=== PATIENT | female | born 1945 | race Caucasian/White ===

== ENCOUNTER → 2016-08-11 | Day surgery (SDC) | payer OTHER ==
[2016-08-01 09:29] VITALS: Ht 165.1 cm; Wt 93.2 kg
--- NOTE | 2016-08-07 12:30 | HISTORY & PHYSICAL EXAMINATION ---
DATE OF ADMISSION: 08/11/2016 ADMITTING DIAGNOSES: 1. Postmenopausal bleeding. 2. Probable endometrial polyp. ADMISSION HISTORY: The patient is a 71-year-old G3, P3 postmenopausal female who is admitted for D\T\C hysteroscopy for postmenopausal bleeding with probable endometrial polyp. The patient was initially referred to me by her primary care provider in May of last year for evaluation of this problem. She had an episode of bleeding in May and June. She had a pelvic ultrasound performed at an outside institution. The endometrial lining was thin, but there was some increased vascularity at the fundus of the uterus and sampling was recommended. The patient underwent an endometrial biopsy which showed fragments of benign endometrium with possible polyp. Treatment options were discussed with the patient and she initially chose conservative management. The patient had no bleeding for several months but then began bleeding again. Pelvic ultrasound done here in the office shows a 2 x 3 cm anterior wall polyp. Treatment options were discussed and the patient has been admitted for the above listed procedure. The patient has a history of a DVT with pulmonary embolus. She has been chronically anticoagulated for several years. The patient was seen for preoperative clearance by her primary care provider and adjustments to her medication was made by the coagulation clinic. The patient has been off anticoagulation medication for the last 5 days. PAST MEDICAL HISTORY: OB: x3. MARKETING EDITOR: ITZEL 3 with a LEEP excision of transformation zone and cold knife cone biopsy. Remainder as above. MEDICAL: Hypertension, hyperkalemia. Remainder as above. SURGICAL: Ankle surgery, knee surgery. ALLERGIES: No known drug allergies. SOCIAL HISTORY: No smoking. FAMILY HISTORY: Noncontributory. REVIEW OF SYSTEMS: As per HPI. ADMISSION PHYSICAL EXAMINATION: GENERAL: Shows a pleasant female in no acute distress. VITAL SIGNS: Blood pressure 130/80, height of 5 feet 5 inches, weight 203 pounds. HEAD, EYES, EARS, NOSE, AND THROAT EXAMINATION: Unremarkable. NECK: Supple. LUNGS: Clear. HEART: With a regular rhythm and rate. ABDOMEN: Obese, nontender with no palpable masses. PELVIC EXAMINATION: Shows atrophic external genitalia. The vaginal vault is pale with decreased rugation. The cervix is multiparous. Bimanual examination, uterus cannot be palpated secondary to patient habitus. Adnexa cannot be palpated secondary to patient habitus. RECTAL EXAMINATION: Confirmatory. EXTREMITY EXAMINATION: Shows no deep calf tenderness. NEUROLOGIC EXAMINATION: Grossly intact. IMPRESSION: A 71-year-old G3, P3 postmenopausal female, postmenopausal bleeding with probable endometrial polyp. PLAN: Risks, benefits and alternatives to the surgery have been discussed. While the benefits will be inspection of the endometrial lining and removal of any tissue, the risks are bleeding, infection, inadvertent perforation of the uterus and failure to diagnose and/or treat the problem. The patient understands this. Permit has been signed and she wishes to proceed.
[~2016-08-11] VITALS: Ht 165.1 cm; Wt 93.2 kg
[~2016-08-11] MED LIST: ASCORBIC ACID PO; ASPCH81X PO; ATROPINE SULFATE 0.1 MG/ML 5ML SYR IV PRN; BIOTIN PO; CYAN10005 PO; DEXAMETHASONE SOD INJ 4 MG/ML VIAL IV PRN; DEXAMETHASONE SOD INJ 4 MG/ML VIAL ONE; EpHEDrine SULFATE 50MG/5ML SYR ONE; EpHEDrine SULFATE INJ 50 MG/ML AMP IV PRN; FENTANYL CITRATE INJ 50 MCG/1 ML 2 ML VIAL IV PRN; FENTANYL CITRATE INJ 50 MCG/1 ML 2 ML VIAL ONE; FOLI1TAB7 PO; IBUPROFEN 600 MG TAB PO PRN; KERATIN PO; KETOROLAC TROMETHAMINE 30 MG/ML VIAL IV. PRN; LABETALOL HCL IV 5 MG/ML 20ML IV PRN; LACTATED RINGER'S 1000ML 1,000 ML IV SCH; LIDOCAINE HCL 2% 2 ML VIAL (20MG/ML) ONE; LOSA50TA6 PO; METOCLOPRAMIDE HCL INJ 5 MG/ML 2 ML VIAL IV PRN; MoRPHine SULFATE 10 MG/ML CARP/VIAL IV PRN; ONDANSETRON INJ 2 MG/ML 2 ML VIAL IV PRN; ONDANSETRON INJ 2 MG/ML 2 ML VIAL ONE; PHENYLEPHRINE 100MCG/ML 5ML SYR IV PRN; PROPOFOL IV EMULSION 10 MG/ML 20 ML VIAL IV ONE; SODIUM CHLORIDE 0.9% 1000ML 1,000 ML IV SCH; WARF1TAB6 PO; WARF2TAB8 PO; ZINC PO
--- NOTE | 2016-08-11 07:59 | History & Physical Bridge - SC ---
H&P Re-Evaluation Bridge Note: I have examined the patient, reviewed the History & Physical and in the interval since the performance of the History & Physical I have noted the following changes of clinical significance: No changes noted
--- NOTE | 2016-08-11 08:44 | [facility] Post Operative Brief Note ---
Immediate Operative Summary Operative Date Aug 11, 2016. Pre-Operative Diagnosis 1) Postmenopausal Bleeding, 2) Probable Polyp Post-Operative Diagnosis Same Procedure(s) Performed Hysteroscopy Dilatation And Curettag, Myosure Polypectomy Surgeon Dr. Alejo Senior Firmware Engineer Surgeon(s) None Estimated Blood Loss Minimal Findings Multiple endometrial polyps filling the endometrial cavity, Myosure resection of polyp, fluid deficit 500 cc Fluids (cc crystalloids) 800 Specimens A. Endometrial Curettings Drains None Anesthesia General Complication(s) None Disposition Recovery Room / PACU
--- NOTE | 2016-08-11 08:45 | Medical Student: [facility] ---
Immediate Operative Summary Operative Date Aug 11, 2016. Pre-Operative Diagnosis Postmenopausal bleeding, probable polyp Post-Operative Diagnosis Postmenopausal bleeding, probably polyp Procedure(s) Performed Hysteroscopy, Dilation and Curettage, Myosure polypectomy Surgeon Dr. Alejo Drafter Landscape Surgeon(s) None Estimated Blood Loss <5 mL Findings Large polyp seen within uterus. Upon removal bilateral ostia visualized. Anatomy otherwise wnl. Specimens Endometrial curettings Drains None Anesthesia General Complication(s) None Disposition Recovery Room / PACU
--- NOTE | 2016-08-11 08:48 | Discharge Instructions-SurgCtr ---
Discharge Instructions Visit Reason for Visit: Postmenopausal Bleeding, Endometrial Polyp Discharge Discharge Diagnosis / Problem: same Discharge Goals Goal(s): Therapeutic intervention Medications Stopped Medications Name(s): ASA and Warfarin Restart Stopped Medication(s): Restart anticoagulation medications per [facility] coagulation clinic instructions Activity Recommendations Activity Limitations: as noted below Anesthesia . Post Anesthesia Instructions: If you have had General Anesthesia or IV Sedation: * Do not drive today. * Resume driving when surgeon permits. * Do not make important decisions or sign legal documents today. * Call surgeon for: 1. Temperature elevations greater than 101 degrees F. 2. Uncontrollable pain. 3. Excessive bleeding. 4. Persistent nausea and vomiting. 5. Medication intolerance (nausea, vomiting or rash). * For nausea and vomiting use only clear liquids such as: tea, soda, bouillon until nausea subsides, then gradually increase diet as tolerated. * If you have any concerns or questions, call your surgeon's office. If physician is unavailable and it is an emergency, call 911 or go to the nearest emergency room. . Instructions / Follow-Up Instructions / Follow-Up ACTIVITY RECOMMENDATIONS: * Avoid tampons, douching, hot tubs, pools, and intercourse until bleeding has stopped. * May shower as usual. * No strenuous activity for 24-48 hours. After 24-48 hours, you may do anything you feel like doing (driving and sports are okay). SPECIAL CARE INSTRUCTIONS: Special Diet: * Mild nausea may occur in the immediate post-operative period. * Take clear liquids such as tea, cola or bouillon until all nausea has subsided; you may then resume your normal diet. Special Care: * Light bleeding and vaginal spotting can last from a few days to 3-4 weeks. Call your doctor if bleeding becomes heavier than the heaviest part of your period. * Check your temperature twice a day for one week. If it goes above 100.4 degrees Fahrenheit (38.0 Celsius), notify your doctor. * Call your doctor's office for an appointment for 6 weeks after your surgery. FOLLOW-UP VISIT: Call your doctor's office for an appointment for 6 weeks after your surgery. Diet Recommendations Home Diet: resume previous diet Procedures Procedures Performed: Hysteroscopy Dilatation And Curettag, Myosure Polypectomy Pending Studies Studies pending at discharge: yes List of pending studies: Pathology report Medical Emergencies . Who to Call and When: Medical Emergencies: If at any time you feel your situation is an emergency, please call 911 immediately. . Non-Emergent Contact Non-Emergency issues call your: Spinner [employer] Call Non-Emergent contact if: you have a fever, temperature is above 100.5, your pain is not controlled . . "Provider Documentation" section prepared by Solitario Alejo.
--- NOTE | 2016-08-11 08:48 | Medical Student: [facility] ---
Immediate Operative Summary Operative Date Aug 11, 2016. Pre-Operative Diagnosis Post Menopausal bleeding, possible endometrial polyps Post-Operative Diagnosis Post-menopausal bleeding, endometrial polyps Procedure(s) Performed D&C with hysteroscopy, using MyoSure device. Surgeon Dr. Alejo Steam Table Attendant Surgeon(s) None Estimated Blood Loss Minimal, <5mL Findings Multiple polyps found, occupying majority of endometrial cavity. Vaginal atrophy consistent with age and post-menopausal status. Cervix appearance was consistent with prior excisional procedure. The rest of the observed anatomy was unremarkable. Specimens Polyp tissue obtained for pathology Anesthesia General Complication(s) None Disposition Recovery Room / PACU
--- NOTE | 2016-08-11 08:50 | [facility] Post Operative Brief Note ---
Immediate Operative Summary Operative Date Aug 11, 2016. Pre-Operative Diagnosis 1) Postmenopausal Bleeding, 2) Probable Polyp Post-Operative Diagnosis Same Procedure(s) Performed Hysteroscopy Dilatation And Curettag, Myosure Polypectomy Surgeon Dr. Alejo Transmission Calibration Engineer Surgeon(s) None Estimated Blood Loss Minimal Findings several endometrial polyps s/p Myosure resection. Fluids (cc crystalloids) 800 Specimens A. Endometrial Curettings Anesthesia General Complication(s) None Disposition Recovery Room / PACU
--- NOTE | 2016-08-11 08:58 | OPERATIVE REPORT ---
DATE OF OPERATION: 08/11/2016 PREOPERATIVE DIAGNOSES: 1. Postmenopausal bleeding. 2. Probable endometrial polyp. POSTOPERATIVE DIAGNOSIS: Same. PROCEDURE PERFORMED: 1. Diagnostic hysteroscopy. 2. D\T\C. 3. MyoSure polypectomy. SURGEON: Dr. Alejo. ANESTHESIA: General. FINDINGS: Hysteroscopic examination of the endometrial cavity showed multiple polyps filling the endometrial cavity. MyoSure resection of polyp performed, excising the polyps down to the base of the myometrium. Fluid deficit for the procedure 500 mL. PROCEDURE NOTE: The patient was taken to the operating room and after general anesthesia, was placed in the dorsolithotomy position and draped and prepped in usual fashion. Bladder was drained of any residual urine. Single tooth tenaculum was used to grasp the anterior lip of the cervix. Uterus sounded to 7 cm and the cervical os was dilated with Shearer dilators to a Shearer #23. The MyoSure hysteroscope was inserted into the endometrial cavity with description as above. The resecting instrument was inserted into the hysteroscope and under direct hysteroscopic guidance the polyps were excised to the base and sent for pathological evaluation. Denuded endometrium at this point with no active bleeding. Fluid deficit for the procedure 500 mL. The patient taken out of dorsal lithotomy and to recovery room in satisfactory condition. I attest to the content of the Intraoperative Record and any orders documented therein. Any exceptio ns are noted below.
[2016-08-11 09:29] VITALS: TEMP 36.4
--- NOTE | 2016-08-11 09:47 | Anesthesia Progress Nt - [facility] ---
Anesthesia Post Op Note Date & Time Aug 11, 2016 at 09:46 Vital Signs Pain Intensity: 0 Vital Signs Past 12 Hours Date Time Temp Pulse Resp B/P Pulse Ox O2 Delivery O2 Flow Rate FiO2 08/11/16 09:29 36.4 89 16 131/81 95 Room Air 08/11/16 09:15 85 15 96 08/11/16 09:15 84 15 08/11/16 09:14 88 15 127/85 97 08/11/16 09:14 88 15 08/11/16 09:13 127/85 08/11/16 09:12 36.2 86 16 129/83 97 Room Air 08/11/16 09:09 85 15 08/11/16 09:09 83 15 98 08/11/16 09:08 129/83 08/11/16 09:07 85 14 97 08/11/16 09:07 85 14 08/11/16 09:06 84 12 08/11/16 09:06 84 12 97 08/11/16 09:03 127/84 08/11/16 09:01 92 11 97 08/11/16 09:01 91 11 08/11/16 09:00 87 13 96 08/11/16 09:00 87 13 08/11/16 08:58 125/76 08/11/16 08:55 89 15 08/11/16 08:55 90 15 97 08/11/16 08:54 83 9 08/11/16 08:54 84 9 100 08/11/16 08:53 128/78 08/11/16 08:49 87 19 08/11/16 08:49 86 19 100 08/11/16 08:48 131/79 08/11/16 08:45 36.4 88 18 127/76 96 Mask 10 08/11/16 08:44 83 13 08/11/16 08:44 82 13 99 08/11/16 06:40 36.4 97 16 131/92 96 Room Air Notes Mental Status: alert / awake / arousable, participated in evaluation Pt Amnestic to Procedure: Yes Nausea / Vomiting: adequately controlled Pain: adequately controlled Airway Patency, RR, SpO2: stable & adequate BP & HR: stable & adequate Hydration State: stable & adequate Anesthetic Complications: no major complications apparent
[2016-08-11 09:52] VITALS: BP 136/85; PULSE 90; O2SAT 94
== END | disposition home or self-care (01) ==
LOC: X.SURG 06:33
PROVIDERS: ATTEND Obstetrics & Gynecology
DX: N95.0 Postmenopausal bleeding (principal); N84.0 Polyp of corpus uteri; Z86.711 Personal history of pulmonary embolism; Z79.01 Long term (current) use of anticoagulants; I10 Essential (primary) hypertension; E87.5 Hyperkalemia

== ENCOUNTER → 2017-01-23 | Outpatient (CLI) | payer OTHER ==
[~2017-01-23] MED LIST changes: -ATROPINE SULFATE 0.1 MG/ML 5ML SYR IV PRN; -DEXAMETHASONE SOD INJ 4 MG/ML VIAL IV PRN; -DEXAMETHASONE SOD INJ 4 MG/ML VIAL ONE; -EpHEDrine SULFATE 50MG/5ML SYR ONE; -EpHEDrine SULFATE INJ 50 MG/ML AMP IV PRN; -FENTANYL CITRATE INJ 50 MCG/1 ML 2 ML VIAL IV PRN; -FENTANYL CITRATE INJ 50 MCG/1 ML 2 ML VIAL ONE; -IBUPROFEN 600 MG TAB PO PRN; -KETOROLAC TROMETHAMINE 30 MG/ML VIAL IV. PRN; -LABETALOL HCL IV 5 MG/ML 20ML IV PRN; -LACTATED RINGER'S 1000ML 1,000 ML IV SCH; -LIDOCAINE HCL 2% 2 ML VIAL (20MG/ML) ONE; -METOCLOPRAMIDE HCL INJ 5 MG/ML 2 ML VIAL IV PRN; -MoRPHine SULFATE 10 MG/ML CARP/VIAL IV PRN; -ONDANSETRON INJ 2 MG/ML 2 ML VIAL IV PRN; -ONDANSETRON INJ 2 MG/ML 2 ML VIAL ONE; -PHENYLEPHRINE 100MCG/ML 5ML SYR IV PRN; -PROPOFOL IV EMULSION 10 MG/ML 20 ML VIAL IV ONE; -SODIUM CHLORIDE 0.9% 1000ML 1,000 ML IV SCH
[2017-01-23 12:33] LABS: INR 1.7 (0.9-1.1); PROTHROMBIN TIME (PATIENT) 18.7 SECONDS (9.0-12.0)
== END | disposition home or self-care (01) ==
LOC: C.LABPBG 08:59
PROVIDERS: ATTEND Family Medicine
DX: Z11.59 Encounter for screening for other viral diseases (principal); D68.51 Activated protein C resistance

== ENCOUNTER → 2017-07-23 | Outpatient (CLI) | payer OTHER ==
[~2017-07-23] MED LIST changes: -FOLI1TAB7 PO; +FOLI1TAB8 PO; +MELO7.5T5 PO
--- NOTE | 2017-07-23 11:53 | DIAGNOSTIC IMAGING REPORT ---
R HIP UNILATERAL 2 VIEWS HISTORY: 72 years-old Female RT HIP PAIN COMPARISON: CT abdomen and pelvis 07/05/2011 TECHNIQUE: 2 views of the right hip FINDINGS: Moderate to severe joint space narrowing with subchondral sclerosis and marginal spurring involves the right femoral acetabular joint. The bones appear mildly demineralized. There is no acute fracture or dislocation. The imaged right hemipelvis appears intact. Soft tissues are unremarkable. IMPRESSION: 1. No acute fracture or dislocation. 2. Moderate to severe right hip osteoarthritis. The above report was generated using voice recognition software. It may contain grammatical, syntax or spelling errors. Electronically signed by: Eran Trammell M.D. 07/23/2017 11:52 AM Dictated Date/Time: 07/23/2017 11:50 AM
[2017-07-23 16:17] LABS: ALT/SGPT 25 U/L (12-78); BLOOD UREA NITROGEN 16 mg/dl (7-18); CALCIUM 9.1 mg/dl (8.5-10.1); CARBON DIOXIDE 26 mmol/L (21-32); CHOLESTEROL 173 mg/dl (0-200); CREATININE 0.84 mg/dl (0.60-1.20); GLUCOSE 111 mg/dl (70-99); POTASSIUM 4.4 mmol/L (3.5-5.1); SODIUM 135 mmol/L (136-145)
[2017-07-23 16:24] LABS: LDL CHOLESTEROL CALCULATED 92 mg/dl
== END | disposition home or self-care (01) ==
LOC: C.RAD 10:04
PROVIDERS: ATTEND Family Medicine
DX: M16.11 Unilateral primary osteoarthritis, right hip (principal); H61.20 Impacted cerumen, unspecified ear; I10 Essential (primary) hypertension; R73.9 Hyperglycemia, unspecified

== ENCOUNTER 2019-12-13 07:59 | Inpatient (IN) ==
--- NOTE | 2019-11-30 11:41 | PAT Medication Instructions ---
Medication Instructions Date of Service November 30, 2019 Home Medications Medication Instructions Recorded folic acid 1 mg tablet 1 mg PO DAILY #90 tab 05/02/19 cyanocobalamin (vitamin B-12) 1,000 mcg capsule 1,000 mcg PO DAILY folic acid 1 mg tablet 1 mg PO DAILY aspirin 81 mg tablet,delayed release 81 mg PO DAILY warfarin 2 mg tablet See Rx Instructions .ROUTE .COMPLEX losartan 100 mg PO QAM metoprolol succinate 25 mg PO QAM ASK your prescriber and surgeon warfarin 2 mg tablet See Rx Instructions .ROUTE .COMPLEX DO NOT take the morning of surgery cyanocobalamin (vitamin B-12) 1,000 mcg capsule 1,000 mcg PO DAILY folic acid 1 mg tablet 1 mg PO DAILY losartan 100 mg PO QAM Take morning of surgery With a small sip of water, OTHERWISE NOTHING TO EAT OR DRINK AFTER MIDNIGHT: aspirin 81 mg tablet,delayed release 81 mg PO DAILY metoprolol succinate 25 mg PO QAM Other Notes If you have any questions please call us at [phone] or [phone] or [phone] or [phone]
--- NOTE | 2019-11-30 12:38 | Anesthesiology Consultation ---
Date of Service November 30, 2019 Assessment & Plan (1) Encounter for pre-operative examination: COVID Status: As of 11/29, patient denies travel (other than residing in [facility]) known exposure/contacts, symptoms or testing for coronavirus. PCP Clearance 12/01/19: "Patients history was reviewed. The patient was examined. The preoperative labs were reviewed. The patients EKG was also reviewed. The patient was found to be at acceptable cardiopulmonary risk for the planned procedure and is okay to proceed as scheduled with anticoagulation recommendations as per the coag clinic." Chart Review Chart Review: Acceptable Risk for Surgery and Patient seen in Pre Admission Testing Teaching & Discussion Instructed NPO after midnight before surgery, except medications with 15 cc of water. Medication instructions provided according to the PAT guidelines. History Surgery Operation Date: 12/13/19 09:45 Proposed Procedures p Right Total Hip Arthroplasty - Que Reinoso DO Height/Weight Height: 5 ft 5 in Weight: 92.9 kg Allergies Allergy/AdvReac Type Severity Reaction Status Date / Time No Known Allergies Allergy Verified 12/01/19 14:59 Medications Home Medications Medication Instructions Recorded Confirmed Last Taken cyanocobalamin (vitamin B-12) 1,000 mcg PO DAILY 04/22/18 12/01/19 Unknown 1,000 mcg capsule folic acid 1 mg tablet 1 mg PO DAILY #90 tab 05/02/19 12/01/19 Unknown aspirin 81 mg tablet,delayed 81 mg PO DAILY #90 tab 06/29/19 12/01/19 Unknown release warfarin 2 mg tablet See Rx Instructions .ROUTE 09/07/19 12/01/19 Unknown .COMPLEX tab losartan 100 mg PO QAM 11/21/19 12/01/19 Unknown metoprolol succinate 25 mg PO QAM 11/21/19 12/01/19 Unknown enoxaparin 40 mg/0.4 mL 40 mg SQ QAM #10 syr 11/30/19 12/01/19 Unknown subcutaneous syringe Past Medical History Medical History Deep vein thrombosis 8 YEARS AGO Elevated homocysteine (Chronic) [place] filter in place 8 YEARS AGO Hearing loss (Chronic) Heterozygous factor V Leiden mutation (Chronic) Hyperglycemia (Chronic) Osteoarthritis Prediabetes A1C 6.3% on pre-op labs Stomach cancer ? *RADIATION TREATMENT FOR 20 DAYS/NO SURGERY Exercise / Class Metabolic Activity III < 4 Walking/Shop/Light housework (Mild ENGLAND, no chest pain, with ambulation over longer distances, 2/2 hip pain. Prior to severe hip pain no ENGLAND.) Past Family History Family History Sister Hypertension Cancer Brother Hypertension Father No problems noted. Mother No problems noted. Denies family history of Ovarian cancer Prostate cancer Myocardial infarction Breast cancer Colorectal cancer Past Surgical History Surgical History History of ankle surgery LEFT (HARDWARE) History of colonoscopy History of colposcopy History of esophagogastroduodenoscopy (EGD) History of tooth extraction S/P knee surgery LEFT Past Anesthesia History No Hx of Anesthesia Complications and No Family Hx of Anesthesia Complications History of PONV No Hx of PONV and No Hx of Motion Sickness Social History Smoking Status: Never smoker Do You Dip or Chew Tobacco: No Hx Alcohol Use: No Hx Substance Use: No substance use type: does not use Review of Systems Pt denies any recent chest pain, shortness of breath, palpitations, cough, fever or URI. Physical Exam Vital Signs BP: 98/67 (pt reports this is low for her but denies lightheadedness or dizziness) P: 99bpm SPO2: 94% RA T: 98.2 F R: 16 ENMT Mouth: + dentures (upper only); no chipped teeth and no loose teeth Thyromental Distance: < 3.5 Finger Breadths (3) Mallampati Class: I Neck + thick neck; neck extension not limited Respiratory normal respiratory effort Auscultation: lungs clear to auscultation bilaterally Cardiovascular Rate/Rhythm: regular rhythm and + tachycardic (borderline) Heart Sounds: no murmur Extremities: no edema Testing Laboratory Results 11/30/19 12:50 11/30/19 12:50 PT 21.7 Seconds (9.0-12.0) H 11/30/19 12:50 INR 2.1 (0.9-1.1) H 11/30/19 12:50 APTT 35.5 Seconds (21.0-31.0) H 11/30/19 12:50 Hemoglobin A1c 6.3 % (4.5-5.6) H 11/30/19 12:50 Urine Color Dark Yellow 05/13/20 12:50 Urine Appearance Turbid (Clear) A 11/30/19 12:50 Urine pH 5.0 (4.5-7.5) 11/30/19 12:50 Ur Specific [place] 1.027 (1.000-1.030) 11/30/19 12:50 Urine Protein Negative (Negative) 11/30/19 12:50 Urine Glucose (UA) Negative (Negative) 11/30/19 12:50 Urine Ketones Trace (Negative) H 11/30/19 12:50 Urine Nitrite Negative (Negative) 11/30/19 12:50 Ur Leukocyte Esterase Negative (Negative) 11/30/19 12:50 Urine WBC (Auto) 1-5 /hpf (0-5) 11/30/19 12:50 Urine RBC (Auto) 0-4 /hpf (0-4) 11/30/19 12:50 U Hyaline Cast (Auto) 5-10 /lpf (0-5) H 11/30/19 12:50 U Epithel Cells (Auto) >30 /lpf (0-5) H 11/30/19 12:50 Urine Bacteria (Auto) Negative (Negative) 11/30/19 12:50 Blood Type A Positive 11/30/19 12:50 Antibody Screen NEGATIVE 11/30/19 12:50 11/30/19 12:50 Urine Culture - Final Urine,Clean Catch Three types of organisms present, all high counts probable skin sandrine. No further identifications or sensitivities to follow. Electrocardiogram Date: 11/30/19 Findings: + NSR @ (86bpm) Chest X-Ray Date: 11/30/19 FINDINGS: Lung volumes are normal. Lungs are clear. There is no pneumothorax or pleural effusion. Mild cardiomegaly is unchanged. Mediastinal contours are normal. There is no evidence for pulmonary edema. Incidental note is made of an IVC filter. Leftward deviation of the trachea is unchanged and due to known thyroid goiter. IMPRESSION: No acute cardiopulmonary findings. No change in appearance of the chest.
[2019-11-30 14:07] LABS: Basophils # (auto) 0.04 K/uL (0-0.2); Basophils % (auto) 0.4 %; Eosinophils # (auto) 0.06 K/uL (0-0.5); Eosinophils % (auto) 0.6 %; Hematocrit (blood only) 42.7 % (37-47); Hemoglobin 14.3 g/dL (12.0-16.0); Immature Granulocytes # (auto) 0.04 K/uL (0.00-0.02); Immature Granulocytes % (auto) 0.4 %; Lymphocytes # (auto) 2.56 K/uL (1.2-3.4); Lymphocytes % (auto) 23.6 %; Mean Corpuscular Hemoglobin 31.4 pg (25-34); Mean Corpuscular Hgb Conc 33.5 g/dL (32-36); Mean Corpuscular Volume 93.6 fL (80-100); Mean Platelet Volume 9.9 fL (7.4-10.4); Monocytes # (auto) 0.98 K/uL (0.11-0.59); Neutrophils # (auto) 7.15 K/uL (1.4-6.5); Platelet Count 388 K/uL (130-400); RDW Coefficient of Variation 13.8 % (11.5-14.5); RDW Standard Deviation 47.1 fL (36.4-46.3); Red Blood Count 4.56 M/uL (4.2-5.4); White Blood Count 10.83 K/uL (4.8-10.8)
[2019-11-30 14:15] LABS: Appearance Urine Turbid (Clear); Bacteria Urine Automated Negative (Negative); Bilirubin Urine Negative (Negative); Blood Urine Negative (Negative); Color Urine Dark Yellow; Epithelial Cell Urine Auto >30 /lpf (0-5); Estimated Average Glucose 134 mg/dl; Glucose Urine UA Negative (Negative); Hemoglobin A1C 6.3 % (4.5-5.6); Ketones Urine Trace (Negative); Leukocyte Esterase Urine Negative (Negative); Nitrite Urine Negative (Negative); Protein Urine Negative (Negative); RBC Urine Automated 0-4 /hpf (0-4); Specific Gravity Urine 1.027 (1.000-1.030); Urobilinogen Urine Negative (Negative)
[2019-11-30 14:21] LABS: INR 2.1 (0.9-1.1); Partial Thromboplastin Ratio 1.3; Partial Thromboplastin Time 35.5 Seconds (21.0-31.0); Prothrombin Time 21.7 Seconds (9.0-12.0)
[2019-11-30 14:22] LABS: Albumin Level 3.7 gm/dl (3.4-5.0); BUN Creatinine Ratio 17.9 (10-20); Calcium 9.2 mg/dl (8.5-10.1); Creatinine Clr Calc Pharmacy 51.6 ml/min; Est GFR (African American) 57.5; Est GFR (Non-African American) 49.6; Potassium 4.5 mmol/L (3.5-5.1)
--- NOTE | 2019-11-30 16:05 | XRay Report ---
XR chest Pre-admission PA/Lat CLINICAL HISTORY: Preoperative evaluation. COMPARISON STUDY: Chest radiograph July 17, 2016. FINDINGS: Lung volumes are normal. Lungs are clear. There is no pneumothorax or pleural effusion. Mil d cardiomegaly is unchanged. Mediastinal contours are normal. There is no evidence for pulmonary denisse a. Incidental note is made of an IVC filter. Leftward deviation of the trachea is unchanged and due t o known thyroid goiter. IMPRESSION: No acute cardiopulmonary findings. No change in appearance of the chest. ACT 112: Negative or not required by law. Electronically signed by: Paulie Whitaker M.D. 11/30/2019 4:04 PM
--- NOTE | 2019-12-01 06:11 | Electrocardiogram Report ---
Test Reason : Blood Pressure : / mmHG Vent. Rate : 086 BPM Atrial Rate : 086 BPM P-R Int : 156 ms QRS Dur : 078 ms QT Int : 368 ms P-R-T Axes : 048 -10 042 degrees QTc Int : 440 ms Normal sinus rhythm Normal ECG No previous ECGs available Confirmed by Sherman Best ([id number]) on 12/01/2019 6:11:19 AM Referred By: Que Reinoso Confirmed By:Sherman Best
--- NOTE | 2019-12-11 18:09 | History & Physical Report ---
Date of Service December 13, 2019 Assessment & Plan (1) Osteoarthritis of right hip: I have indicated the patient for right total hip replacement. The risks, benefits and complications of surgery were explained to the patient which include but not limited to infection, acute blood loss, DVT/PE, injury to nerves, vessels, bone, soft tissue, arthrofibrosis, chronic pain, failure of the prosthesis, hip dislocation, leg length discrepancy, need for additional surgery, cardiac and pulmonary events and . The patient wished to proceed with surgery and informed consent was obtained at this time. We will plan for Lovenox bridge and restating patient's home blood thinner, Warfarin post-oper atively for DVT prophylaxis. Upon discharge the patient will be discharged home with home health services. Appropriate clearances by PCP, Rajendra were obtained. The patient was asymptomatic for UTI. History of Present Illness Chief Complaint: Right hip pain/djd Primary Care Provider: Torie Chamorro MD The patient is a 74 year old female who presents with complaints of severe right hip pain and DJD. The patient has failed outpatient conservative treatments to this point which included NSAIDS, IA corticosteroid injection, home exercise/walking program. The patient's pain and limited function have progressed to the point where they severely hinder their activities of daily living and they no longer tolerate exercise programs. They are requesting to proceed with total hip replacement surgery. Allergies Allergy/AdvReac Type Severity Reaction Status Date / Time No Known Allergies Allergy Verified 12/13/19 08:28 Home Medications Home Medications Medication Instructions Recorded Confirmed Type cyanocobalamin (vitamin B-12) 1,000 mcg PO DAILY 04/22/18 12/13/19 History 1,000 mcg capsule folic acid 1 mg tablet 1 mg PO DAILY #90 tab 05/02/19 12/13/19 Rx aspirin 81 mg tablet,delayed 81 mg PO DAILY #90 tab 06/29/19 12/13/19 History release warfarin 2 mg tablet See Rx Instructions .ROUTE 09/07/19 12/13/19 History .COMPLEX tab losartan 100 mg PO QAM 11/21/19 12/13/19 History metoprolol succinate 25 mg PO QAM 11/21/19 12/13/19 History enoxaparin 40 mg/0.4 mL 40 mg SQ QAM #10 syr 11/30/19 12/13/19 Rx subcutaneous syringe Past Med/Surg History Medical History Deep vein thrombosis 8 YEARS AGO Elevated homocysteine (Chronic) Irving filter in place 8 YEARS AGO Hearing loss (Chronic) Heterozygous factor V Leiden mutation (Chronic) Hyperglycemia (Chronic) Osteoarthritis Prediabetes A1C 6.3% on pre-op labs Stomach cancer ? *RADIATION TREATMENT FOR 20 DAYS/NO SURGERY Surgical History History of ankle surgery LEFT ([place]) History of colonoscopy History of colposcopy History of esophagogastroduodenoscopy (EGD) History of tooth extraction S/P knee surgery LEFT Family History Sister Hypertension Cancer Brother Hypertension Father No problems noted. Mother No problems noted. Denies family history of Ovarian cancer Prostate cancer Myocardial infarction Breast cancer Colorectal cancer Social History Preferred Language: Palestinian Communication Ability: Effective Resident Care Provider Required: No Beliefs That Will Affect Care: None marital status: Current Living Situation: Spouse current occupational status: retired Feels Safe at Home: Yes Safety Concerns: Feels Safe At This Time Smoking Status: Never smoker Do You Dip or Chew Tobacco: No ; Second Hand Exposure: Yes ( SMOKES) ; Tobacco Cessation Education Requested by Patient: No Hx Alcohol Use: No Hx Substance Use: No Childhood Exposure to Second-Hand Smoke: No Dental Care, Regularly: No Physical Activity Frequency: Does not Exercise Seatbelt Use: always Sunscreen Use: Yes Review of Systems Review of Systems: All systems reviewed & are unremarkable except as noted in HPI & below Constitutional: as per Subjective / HPI Physical Exam Physical Exam: RLE NVSI +EHL/FHL/TA/GS SILT grossly, +2 DP pulse, compartments soft NT, limited painful ROM of the hip, antalgic gait. Constitutional: WD/WN, vitals as above Eyes: PERRL, conjunctivae normal, anicteric sclerae ENMT: external ear and nose normal, oropharynx normal Neck: trachea midline, no thyromegaly Respiratory: normal respiratory effort, lungs clear to auscultation Cardiovascular: RRR, no murmur, no edema Gastrointestinal (Abdomen): normal bowel sounds, soft, nontender, no hepatosplenomegaly Musculoskeletal: no cyanosis or clubbing, extremities motor strength 5/5 Skin: no rashes, warm and dry Neurologic: patellar DTR's 2+ bilat, sensation intact Psychiatric: A+Ox3, euthymic affect Lymphatic: no cervical or axillary lymphadenopathy Results & Data Results & Data ([facility]) Diagnostic Findings Multiple views of the hip demonstrates severe DJD with complete loss of the joint space. +osteophytes, +sclerosis, +subchondral cysts.
[~2019-12-13 07:59] MED LIST changes: +ACETAMINOPHEN 500 MG TAB PO SCH; -ASCORBIC ACID PO; -ASPCH81X PO; -BIOTIN PO; +BUPIVACAINE 0.5 % 5 MG/1 ML PF 10ML VIAL ONE; +CEFAZOLIN 2000MG 2,000 MG/15 ML SYR IV SCH; -CYAN10005 PO; +CeleBREX 200 MG CAP PO SCH; +FAMOTIDINE 20 MG TAB PO SCH; -FOLI1TAB8 PO; +GABAPENTIN 300 MG CAP PO SCH; -KERATIN PO; -LOSA50TA6 PO; +LR 500ML BOLUS, THEN 15ML/HR IV SCH; -MELO7.5T5 PO; +METOCLOPRAMIDE HCL 10 MG TABLET PO SCH; -WARF1TAB6 PO; -WARF2TAB8 PO; -ZINC PO; +dexAMETHasone 4 MG TAB PO SCH
[2019-12-13] MEDS ORDERED: PHENYLEPHRINE HCL 10 MG/ML VIAL ONE (08:08)
[2019-12-13] MEDS ORDERED: LIDOCAINE HCL 2% 2 ML VIAL/AMP(20MG/ML) INFIL ONE (08:08)
[2019-12-13] MEDS ORDERED: ePHEDrine sulfate 50 MG/ML SYR ONE (08:08)
[2019-12-13] MEDS ORDERED: PROPOFOL IV EMULSION 10 MG/ML 20 ML VIAL IV ONE ×2 (08:08→08:35)
[2019-12-13] MEDS ORDERED: MIDAZOLAM HCL 1 MG/ML 2ML VIAL ONE (08:09)
[2019-12-13] MEDS ORDERED: fentaNYL citrate 100 MCG/2 ML VIAL ONE (08:09)
[2019-12-13] MEDS ORDERED: BACITRACIN INJ 50,000 UNIT VIAL ONE (09:29)
--- NOTE | 2019-12-13 09:30 | History & Physical Bridge Note ---
Date of Service December 13, 2019 History & Physical Bridge Note I have examined the patient, reviewed the History & Physical and in the interval since the performance of the History & Physical I have noted the following changes of clinical significance: no changes noted
[2019-12-13 09:31] LABS: INR 1.1 (0.9-1.1); Partial Thromboplastin Ratio 0.9
[2019-12-13] MEDS ORDERED: ROPIVACAINE 0.5% HCL/PF 150 MG, BUPIVACAINE 0.5% MPF 30 ML, EPINEPHrine 30MG/30ML (OR U... INSTIL SCH (10:30)
--- NOTE | 2019-12-13 11:51 | Post Operative Brief Note ---
Immediate Post Op Note v1 Date of Surgery December 13, 2019 Pre & Post Diagnosis Operation Date: 12/13/19 09:50 Pre-Op Diagnosis: Unilateral Primary Osteoarthritis, Right Hip Post-Op Diagnosis: Unilateral Primary Osteoarthritis, Right Hip I identified the patient and participated in the time-out.: Yes Procedure Operation Date: 12/13/19 09:50 Actual Procedures p Right Posterior Total Hip Arthroplasty(Right) - Que Reinoso DO Surgeon Que Reinoso DO Assistant Professor Sculpture Taiwo Guzmán Estimated Blood Loss 165 Findings Consistent with Post-Op Diagnosis Fluids 2400 cc LR Specimens femoral head Anesthesia Type Spinal MAC Complications none Disposition Disposition: Recovery Room Overlapping Procedure I was present for: the critical portions of procedure. I was immediately available: during the entire case. Back up surgeon: was not required during procedure.
--- NOTE | 2019-12-13 11:54 | Operative Report ---
Post Operative Report Pre & Post Diagnosis Operation Date: 12/13/19 09:50 Pre-Op Diagnosis: Unilateral Primary Osteoarthritis, Right Hip Post-Op Diagnosis: Unilateral Primary Osteoarthritis, Right Hip I identified the patient and participated in the time-out.: Yes Procedure Operation Date: 12/13/19 09:50 Actual Procedures p Right Posterior Total Hip Arthroplasty(Right) - Que Reinoso DO Surgeon Que Reinoso DO Interpreter And Translator Taiwo Guzmán Estimated Blood Loss 165 Findings Consistent with Post-Op Diagnosis Fluids 2400 cc LR Specimens femoral head Anesthesia Type Spinal MAC Complications none Disposition Disposition: Recovery Room Indications The patient is a 74-year-old female who presents with severe progressive right hip DJD who has failed outpatient conservative treatments. I indicated the patient for a total hip replacement and the risks and benefits were explained in detail which included but not limited to infection, bleeding, blood clot, damage to surrounding bone, nerves, vessels, soft tissue, hip dislocation, failure of the prosthesis, leg length discrepancy, need for additional surgery and . The patient agreed to proceed with replacement of the hip and informed consent was obtained. Appropriate clearances were obtained. Description of Procedure COMPONENTS USED: Moon [employer] hip system: Acetabulum size 54, femur size 11 standard offset, femoral head 36-3.5, liner 3654, acetabular screw 30 mm x 1. Following induction of adequate spinal anesthesia, the patient was transferred to the OR table and placed in lateral decubitus position with left hip down. The right hip was prepped and draped in the typical sterile fashion. A timeout was performed, patient identified and site lakisha confirmed. Appropriate antibiotics were given. A standard posterolateral/Moriah-Langenbeck incision was made. Subcutaneous tissue was sharply dissected. Electrocautery was utilized for hemostasis. The fascia was incised throughout the length of the wound and retracted with the Charnley retractor. The bursa was taken down and the short external rotators were identified. The piriformis was tagged with #1 Vicryl. The short external rotators and capsule were divided from the posterior aspect of the femur using electrocautery. The posterior capsule was tagged with #1 Vicryl. Both external rotators and posterior capsule were swept posterior and protected, along with protecting the sciatic nerve. The hip was dislocated by flexion and internally rotation in a controlled manner and exposure of the femoral neck was gained with an old-style Hohmann and a blunt cobra retractor. A femoral cutting guide was utilized for making the appropriate level femoral neck cut with reciprocating saw. The femoral head was removed, measured and reserved on the back table. Next, attention was turned to the acetabulum. A posterior and anterior offset retractor was placed to gain adequate exposure. Acetabular labrum as well as posterior capsule elements were removed using electrocautery and forceps. Fovea centralis was cleared of all soft tissue. Sequential reaming was performed starting at 44 mm and carried up to a 53 mm and decision was made to proceed with impaction of a 54 mm G7 osteo-ti cup. This was impacted and held using a single 30 mm bone screw. The trial acetabular liner was placed at this time. Next, attention was turned to the proximal femur where a Bovie and pickup was used to further clear short external rotators from their insertion on the femur. Box osteotome and canal finder was used to gain access to the femoral canal and the lateral reamer on power was used to further open the proximal lateral canal. Sequentially rasping was carried up to a 11 which gave good fit and fill of the proximal femur. A trial reduction was carried out with a standard offset femoral neck component a 36-3.5 mm femoral head. The trial reduction was stable in all degrees of rotation with no [id number] impingement. The hip was dislocated, trial components were removed and access to the acetabulum was re-established. The trial liner was removed and the cup was irrigated to ensure all debris was removed. The final acetabular liner was inserted and properly seated in the cup. Access to the femur was once more gained and the size 11 femoral stem with standard offset was impacted into position. The hip was once more assessed with the 36-3.5 mm femoral head. Stability was accessed and found to be excellent with equal leg lengths. The hip was dislocated for the last time and the final 36-3.5 ceramic femoral head was impacted in place and the hip was reduced. Range of motion was checked once again and found to be stable. A Betadine soak was performed. After 3 minutes, the hip was once more irrigated with copious sterile saline solution with bacitracin. The fatimah-incisional soft tissue was injected utilizing [place] [facility] ortho mix which includes a combination of Ropivicaine 0.5% 150mg, Bupivicaine 0.5%/Epinephrine 1:200,000 30ml, Toradol 30mg, Dexamethasone 4mg, Ketamine 10mg, Clonidine 100mcg and NSS 30ml Orthomix solution. The piriformis, external rotators and capsule were repaired to the greater trochanter through bone tunnels using #5 FiberWire. The fascia was closed using #1 Vicryl, subcutaneous tissue was closed using 2-0 Vicryl, and skin was closed with dio. Sterile dressings were applied which included Scarlett incisional VAC dressing. The patient tolerated the procedure well and was transported to PACU in stable condition. Due to the complex nature of the procedure, the entire surgery was performed with the operational assistance of Taiwo Guzmán PA-C. The assistant spa director, under direct supervision, was involved in the actual performance of all aspects of the surgical procedure including patient positioning, hemostasis, tissue retraction, instrument management and wound closure. I attest to the content of the Intraoperative Record and any orders documented therein. Any exceptions are noted below.
[2019-12-13] MEDS ORDERED: fentaNYL citrate 100 MCG/2 ML VIAL IV PRN (12:51)
[2019-12-13] MEDS ORDERED: ePHEDrine sulfate 50 MG/ML AMP IV PRN (12:51)
[2019-12-13] MEDS ORDERED: ATROPINE SULFATE 0.1 MG/ML 10ML SYR IV PRN (12:51)
[2019-12-13] MEDS ORDERED: ONDANSETRON INJ 2 MG/ML 2 ML VIAL IV PRN ×2 (12:51→13:47)
--- NOTE | 2019-12-13 12:54 | Anesthesiology Progress Note ---
Date of Service December 13, 2019 Anesthesia Post Procedure Vital Signs Vital Signs: Temp Pulse Pulse Resp BP BP Pulse Ox 12/13/19 12:45 84 16 107/71 99 12/13/19 12:35 82 16 117/72 96 12/13/19 12:25 85 18 114/73 94 12/13/19 12:16 96.8 F L 88 22 101/65 92 12/13/19 08:21 98.8 F 98 H 18 129/92 94 Pain Intensity Right Hip: Pain Intensity: 3 Transfer of Care Handoff Completed per policy Notes Mental Status: alert / awake / arousable and participated in evaluation Patient Amnestic to Procedure: Yes Nausea / Vomiting: adequately controlled Pain: adequately controlled Airway Patency, RR, SpO2: stable & adequate BP & HR: stable & adequate Hydration State: stable & adequate Neuraxial Anesthesia: was administered and sensory block is resolving Anesthetic Complications: no major complications apparent and Pt Satisfied with anesthetic care
--- NOTE | 2019-12-13 12:57 | XRay Report ---
XR hip 1V RT w pelvis CLINICAL HISTORY: Postoperative hip arthroplasty COMPARISON: 07/23/2017 DISCUSSION: There are postsurgical changes of a total right hip arthroplasty. The acetabular and femo ral components appear well seated. No fractures or dislocations are visualized. There are overlying s kin dio. There is gas present in the soft tissues consistent with recent surgery IMPRESSION: Postsurgical changes of a total right hip arthroplasty. ACT 112: Negative or not required by law. Electronically signed by: Chinedu Jules M.D. 12/13/2019 12:56 PM
[2019-12-13] MEDS: SODIUM CHLORIDE 0.9% 1000ML 1,000 ML IV SCH ×2 (13:40→23:17)
[2019-12-13] MEDS ORDERED: bisacodyL 10 MG SUPP PR PRN (13:47)
[2019-12-13] MEDS ORDERED: OXYCODONE HCL IR 5 MG TAB (IMMEDIATE RELEASE) PO PRN (13:47)
[2019-12-13] MEDS ORDERED: METOCLOPRAMIDE HCL INJ 5 MG/ML 2 ML VIAL IV PRN (13:47)
[2019-12-13] MEDS ORDERED: HYDROmorphone INJ 0.5 MG/0.5 ML SYR IV PRN (13:47)
[2019-12-13] MEDS ORDERED: NALOXONE HCL 0.4 MG/1 ML VIAL/CARP IV PRN (13:47)
[2019-12-13] MEDS ORDERED: MAGNESIUM HYDROXIDE SUSP 30 ML UDC PO PRN (13:47)
[2019-12-13] MEDS ORDERED: STANDARD WARFARIN NOMOGRAM SCH (14:00)
[2019-12-13] MEDS ORDERED: WARFARIN SOD 5 MG TAB PO SCH (16:00)
[2019-12-13] MEDS ORDERED: Nursing to Pharmacy Communication ONE (16:49)
[2019-12-13] MEDS: ACETAMINOPHEN 500 MG TAB PO SCH ×2 (17:16→21:14)
[2019-12-13] MEDS ORDERED: WARFARIN SOD 4 MG TAB PO ONE (17:30)
[2019-12-13] MEDS: CEFAZOLIN 2000MG 2,000 MG/15 ML SYR IV SCH (18:07)
--- NOTE | 2019-12-13 19:59 | Orthopedic Progress Note ---
Date of Service December 13, 2019 Assessment & Plan (1) Osteoarthritis of right hip: s/p right RAINER -Ancef x24 -DVT ppx: SCDs, TEDS, Lovenox-->Warfarin -WBAT RLE -PT/OT -PO XR demonstrates well aligned well fixed total hip prothesis without fracture/dislocation -am labs -DC planning Admission and Anticipated Discharge Date Admission Date: December 13, 2019 Subjective Post Operative Progress Note Patient seen sitting up in bed, comfortable, denies complaints, pain well controlled, no acute issues. Review of Systems 2 Review of Systems: All systems reviewed & are unremarkable except as noted in HPI & below Constitutional: as per Subjective / HPI Physical Exam Physical Exam: RLE NVSI +EHL/FHL/TA/GS SILT grossly, +2 DP pulse, compartments soft NT, dressing cdi. Constitutional: WD/WN, vitals as above Results & Data ([place]) Vital Signs (Past 12 Hours) Vital Signs Temp Pulse Pulse Resp BP BP Pulse Ox 12/13/19 19:02 36.7 C 104 H 18 110/74 95 12/13/19 16:49 36.7 C 98 H 18 109/68 95 12/13/19 15:35 36.6 C 98 H 16 128/80 95 12/13/19 14:46 60 18 121/80 98 12/13/19 13:40 36.5 C 60 15 119/77 98 12/13/19 13:15 82 17 115/70 96 12/13/19 13:05 83 19 106/84 96 12/13/19 12:55 36.3 C L 82 14 116/73 95 12/13/19 12:45 84 16 107/71 99 12/13/19 12:35 82 16 117/72 96 12/13/19 12:25 85 18 114/73 94 12/13/19 12:16 36.0 C L 88 22 101/65 92 12/13/19 08:21 37.1 C 98 H 18 129/92 94
[2019-12-13] MEDS ORDERED: SENNA 8.6 MG TAB PO SCH (21:00)
[2019-12-13] MEDS: DOCUSATE SODIUM 100 MG CAP PO SCH (21:14)
[2019-12-14] MEDS: CEFAZOLIN 2000MG 2,000 MG/15 ML SYR IV SCH (02:42)
[2019-12-14] MEDS: ACETAMINOPHEN 500 MG TAB PO SCH ×2 (05:37→13:35)
[2019-12-14 06:17] LABS: Hematocrit (blood only) 33.2 % (37-47); Hemoglobin 11.1 g/dL (12.0-16.0); Immature Granulocytes # (auto) 0.05 K/uL (0.00-0.02); Immature Granulocytes % (auto) 0.3 %; Lymphocytes # (auto) 2.16 K/uL (1.2-3.4); Lymphocytes % (auto) 13.6 %; Mean Corpuscular Hemoglobin 30.8 pg (25-34); Mean Corpuscular Hgb Conc 33.4 g/dL (32-36); Mean Corpuscular Volume 92.2 fL (80-100); Mean Platelet Volume 9.2 fL (7.4-10.4); Monocytes # (auto) 1.95 K/uL (0.11-0.59); Monocytes % (auto) 12.3 %; Neutrophils # (auto) 11.69 K/uL (1.4-6.5); Neutrophils % (auto) 73.8 %; Platelet Count 297 K/uL (130-400); RDW Coefficient of Variation 13.6 % (11.5-14.5); RDW Standard Deviation 46.2 fL (36.4-46.3); White Blood Count 15.85 K/uL (4.8-10.8)
[2019-12-14 06:27] LABS: INR 1.2 (0.9-1.1)
[2019-12-14 06:47] LABS: BUN Creatinine Ratio 19.2 (10-20); Calcium 8.6 mg/dl (8.5-10.1); Est GFR (African American) 72.1; Est GFR (Non-African American) 62.2; Potassium 4.4 mmol/L (3.5-5.1)
--- NOTE | 2019-12-14 07:51 | Orthopedic Progress Note ---
Date of Service December 14, 2019 Assessment & Plan (1) Osteoarthritis of right hip: s/p right RAINER POD#1 -Ancef x24 -DVT ppx: SCDs, TEDS, Lovenox-->Warfarin, patient followed by Coumadin clinic -WBAT RLE -PT/OT -PO XR demonstrates well aligned well fixed total hip prothesis without fracture/dislocation -am labs - hgb 11.1, INR 1.2 -DC planning -Home with home health Admission and Anticipated Discharge Date Admission Date: December 13, 2019 Subjective Post Operative Progress Note Patient seen sitting up in bed, comfortable, denies complaints, pain well controlled, no acute issues. Denies F/C/N/V/SOB/CP. Review of Systems Review of Systems: All systems reviewed & are unremarkable except as noted in HPI & below Constitutional: as per Subjective / HPI Physical Exam Physical Exam: RLE NVSI +EHL/FHL/TA/GS SILT grossly, +2 DP pulse, compartments soft NT, dressing cdi. Constitutional: WD/WN, vitals as above Eyes: PERRL, conjunctivae normal, anicteric sclerae ENMT: external ear and nose normal, oropharynx normal Neck: trachea midline, no thyromegaly Respiratory: normal respiratory effort, lungs clear to auscultation Cardiovascular: RRR, no murmur, no edema Gastrointestinal (Abdomen): normal bowel sounds, soft, nontender, no hepatosplenomegaly Musculoskeletal: no cyanosis or clubbing, extremities motor strength 5/5 Skin: no rashes, warm and dry Neurologic: patellar DTR's 2+ bilat, sensation intact Psychiatric: A+Ox3, euthymic affect Lymphatic: no cervical or axillary lymphadenopathy Results & Data ([facility]) Vital Signs (Past 12 Hours) Vital Signs Temp Pulse Resp BP Pulse Ox 12/14/19 07:18 36.5 C 74 18 126/77 94 12/14/19 02:42 36.3 C L 82 16 131/83 94 12/13/19 23:18 36.5 C 88 16 109/74 91 Laboratory Results 12/14/19 12/14/19 12/14/19 Range/Units 05:56 05:56 05:56 WBC 15.85 H (4.8-10.8) K/uL RBC 3.60 L (4.2-5.4) M/uL Hgb 11.1 L (12.0-16.0) g/dL Hct 33.2 L (37-47) % MCV 92.2 (80-100) fL MCH 30.8 (25-34) pg MCHC 33.4 (32-36) g/dL RDW Std Deviation 46.2 (36.4-46.3) fL RDW Coeff of Silver 13.6 (11.5-14.5) % Plt Count 297 (130-400) K/uL MPV 9.2 (7.4-10.4) fL Immature Gran % (Auto) 0.3 % Neut % (Auto) 73.8 % Lymph % (Auto) 13.6 % Hardee % (Auto) 12.3 % Eos % (Auto) 0.0 % Baso % (Auto) 0.0 % Immature Gran # (Auto) 0.05 H (0.00-0.02) K/uL Neut # (Auto) 11.69 H (1.4-6.5) K/uL Lymph # (Auto) 2.16 (1.2-3.4) K/uL Hardee # (Auto) 1.95 H (0.11-0.59) K/uL Eos # (Auto) 0.00 (0-0.5) K/uL Baso # (Auto) 0.00 (0-0.2) K/uL PT 13.0 H INR 1.2 H APTT PTT Ratio Sodium 139 (136-145) mmol/L Potassium 4.4 (3.5-5.1) mmol/L Chloride 107 (98-107) mmol/L Carbon Dioxide 23 (21-32) mmol/L Anion Gap 9.0 (3-11) BUN 18 (7-18) mg/dl Creatinine 0.92 (0.6-1.2) mg/dl Est Cr Clr Drug Dosing 62.0 ml/min Est GFR ( Amer) 72.1 Est GFR (Non-Af Amer) 62.2 BUN/Creatinine Ratio 19.2 (10-20) Glucose 152 H (70-99) mg/dl POC Glucose (70-99) mg/dl Calcium 8.6 (8.5-10.1) mg/dl 05/26/20 05/26/20 05/26/20 Range/Units 12:24 09:02 08:18 WBC (4.8-10.8) K/uL RBC (4.2-5.4) M/uL Hgb (12.0-16.0) g/dL Hct (37-47) % MCV (80-100) fL MCH (25-34) pg MCHC (32-36) g/dL RDW Std Deviation (36.4-46.3) fL RDW Coeff of Silver (11.5-14.5) % Plt Count (130-400) K/uL MPV (7.4-10.4) fL Immature Gran % (Auto) % Neut % (Auto) % Lymph % (Auto) % [place]ee % (Auto) % Eos % (Auto) % Baso % (Auto) % Immature Gran # (Auto) (0.00-0.02) K/uL Neut # (Auto) (1.4-6.5) K/uL Lymph # (Auto) (1.2-3.4) K/uL Hardee # (Auto) (0.11-0.59) K/uL Eos # (Auto) (0-0.5) K/uL Baso # (Auto) (0-0.2) K/uL PT 12.0 Cancelled INR 1.1 Cancelled APTT 26.0 Cancelled PTT Ratio 0.9 Cancelled Sodium (136-145) mmol/L Potassium (3.5-5.1) mmol/L Chloride (98-107) mmol/L Carbon Dioxide (21-32) mmol/L Anion Gap (3-11) BUN (7-18) mg/dl Creatinine (0.6-1.2) mg/dl Est Cr Clr Drug Dosing ml/min Est GFR ( Amer) Est GFR (Non-Af Amer) BUN/Creatinine Ratio (10-20) Glucose (70-99) mg/dl POC Glucose 153 H (70-99) mg/dl Calcium (8.5-10.1) mg/dl
[2019-12-14] MEDS: DOCUSATE SODIUM 100 MG CAP PO SCH (08:15)
[2019-12-14] MEDS ORDERED: METOPROLOL SUCC 25MG EXT REL TAB PO SCH (09:00)
[2019-12-14] MEDS ORDERED: LOSARTAN POTASSIUM 50 MG TAB PO SCH (09:00)
[2019-12-14] MEDS ORDERED: ENOXAPARIN INJ 40 MG/0.4 ML SYR SQ SCH ×2 (09:00)
[2019-12-14] MEDS ORDERED: MULTIVITAMIN TAB PO SCH (09:00)
[2019-12-14] MEDS ORDERED: WARFARIN SOD 3 MG TAB PO SCH (16:00)
--- NOTE | 2019-12-14 20:44 | Discharge Summary ---
Date of Service December 14, 2019 Admission HPI Per Admitting Provider The patient is a 74 year old female who presents with complaints of severe right hip pain and DJD. The patient has failed outpatient conservative treatments to this point which included NSAIDS, IA corticosteroid injection, home exercise/walking program. The patient's pain and limited function have progressed to the point where they severely hinder their activities of daily living and they no longer tolerate exercise programs. They are requesting to proceed with total hip replacement surgery. Principal Diagnosis Right total hip replacement -right hip djd Discharge Exam RLE NVSI +EHL/FHL/TA/GS SILT grossly, +2 DP pulse, compartments soft NT, dressing cdi. Constitutional WD/WN, vitals as above Discharge Data Allergies Allergy/AdvReac Type Severity Reaction Status Date / Time No Known Allergies Allergy Verified 12/13/19 08:28 Consultations 12/14/19 08:00 Consult Case Management - Discharge Planning Routine Procedures Performed Operation Date: 12/13/19 09:50 Actual Procedures p Right Posterior Total Hip Arthroplasty(Right) - Que Reinoso DO Hospital Course (1) Osteoarthritis of right hip: The patient is a 74 -year-old female who presents with long standing history of severe right hip DJD and failed outpatient conservative treatments. The patient's symptoms have progressed to the point where it has been difficult to perform even normal activities of daily living. I indicated the patient for a right total hip arthroplasty, the risks, benefits and complications of the procedure include but not limited to infection, bleeding, damage to bone, nerves, vessels, surrounding soft tissue, may develop blood clots, loss of function, leg length discrepancy, dislocation, failure of the components, loosening of the components, the need for additional surgery and . The patient wished to proceed with surgery at this time and informed consent was obtained. Hospital Course: On 12/13/19 the patient was taken to the operating room, adequate anesthesia administered and underwent a right total hip arthroplasty. The patient tolerated the procedure well and was taken to the PACU in stable condition. Post-operatively the patient was started on a DVT ppx medication and given appropriate IV antibiotics. Consults were placed to physical therapy, occupational therapy and case management. On POD#1, the patient did well overnight and their pain was well controlled. Labs were drawn and the Hgb was 11.1. The patient progressed well with PT. Dressings were changed at this time and the incision was clean, dry and intact. The patients hospital stay was relatively uneventful and they were deemed stable by the orthopedic team and consultants to be discharged home with on 12/14/19. Discharge Instructions: Upon discharge the patient may weight bear as tolerates through their operative extremity. They were instructed to keep the incision clean and dry at all times. The patient may shower but should not submerge the incision, avoid bathing, pools and hot tubes. The patient was given a script for pain medication and should take as instructed. The patient will continue home blood thinner Warfarin and is being bridged with Lovenox per coumadin clinic recommendations and should take as directed. The patient was instructed to not drive or travel for long distances until cleared to do so. If the patient develops any symptoms of fevers, chills, nausea, vomiting, increased redness, swelling, pain or drainage from the surgical site, they should notify the office and/or proceed to the nearest emergency room. The patient should follow up in 10-14 days after surgery for their routine post-operative follow-up appointment and should call the office to confirm the date and time. s/p right RAINER POD#1 -Ancef x24 -DVT ppx: SCDs, TEDS, Lovenox-->Warfarin, patient followed by Coumadin clinic -WBAT RLE -PT/OT -PO XR demonstrates well aligned well fixed total hip prothesis without fracture/dislocation -am labs - hgb 11.1, INR 1.2 -DC planning -Home with home health Total Time Total Time Spent Total Time Spent (In Minutes): 30 Discharge Plan Discharge Items Patient Disposition: Home - Home Health Services Reason For Visit: Unilateral Primary Osteoarthritis, Right Hip Discharge Diagnosis: Right total hip replacement -right hip djd Condition on Discharge: Good Activity: Per Instructions section Lifting: Wait until after follow-up appointment Bathing: Keep incision dry Bathing Comment: No bathing, pools or hot tubs Sexual Activity: Wait until after follow-up appointment Exercise/Sports: Wait until after follow-up appointment Driving/Machine Use: No driving Weightbearing: Full weightbearing Non-emergency contact: Surgeon Call non-emergency contact if: you have any medication questions, your symptoms worsen, your pain is not controlled, your pain is worsening, your pain is unusual for you, your pain is concerning for you, you have a fever, your temperature is above 101, your wound has increased redness, your wound has increased drainage and your wound pain has increased Follow-up/Referrals: Torie Chamorro MD [Primary Care Provider] - Diet: Regular Ambulatory Orders: Prothrombin Time INR (Timed) Timeframe: 3 Days Location: Determined by Patient Ordered By: Que Montanez Attending Provider Instructions: ACTIVITY RECOMMENDATIONS: SELF CARE INSTRUCTIONS AFTER TOTAL HIP REPLACEMENT Until the incision and soft tissues around your hip have healed, there is a possibility that the hip prosthesis could dislocate. A. Observe the following precautions to prevent dislocation: 1. Don't bend your hip greater than 90 degrees. 2. Avoid crossing your legs or ankles while standing or lying. 3. Sit with your feet placed 6 inches apart. 4. When sitting, keep your knees below your hips. Sit on a firm surface, avoid deep, soft chairs and couches. Use an elevated toilet seat in the bathroom. 5. Don't bend over at the waist. Use a long handled shoehorn and a sock aid to help you put on your shoes and socks. A casing mixer can help you picker packer objects that are too high or too low to reach. 6. Keep car riding to a minimum for at least one month after surgery. B. Your balance may be shaky for a while. Use crutches or a walker until directed by your doctor. C. Use hand rails when walking on stairs. D. Wear low heeled shoes with non-slip soles. E. Be sure that your floors are free of things that could trip you - throw rugs, electrical cords, small objects. Avoid wet and waxed floors, especially with crutches and canes. F. Try to walk several times a day with rest periods between. G. Continue with all the exercises taught to you in the hospital. Again, make walking a part of your daily routine. SPECIAL CARE INSTRUCTIONS: VERY IMPORTANT TO READ AND REVIEW A. You may still be at risk for phlebitis and blood clots. 1. Wear surgical stockings (MIREYA hose) for 2 weeks after surgery to improve circulation and reduce swelling. 2. Take your home blood thinner, warfarin or as directed by your doctor. Continue to take Lovenox 40 mg daily until INR level between 2 and 3. This is your blood thinner. 3. High risk patients may be prescribed a stronger blood thinner if necessary. 4. If you are on Coumadin normally, your family doctor/ultrasound tester should monitor your blood work. Expect a phone call the day of or the day after bloodwork is drawn to adjust your dosage. 5. Follow the directions of the Coumadin clinic who is actively managing your warfarin. B. You must take antibiotics before having dental work, bladder, bowel and other surgery. Your doctor will provide you with a permanent card to carry describing precautions. C. Call [facility] if you have a fever, redness or swelling around the incision, cloudy drainage from incision, or sudden increase in pain in your hip, not relieved by your regular pain medication. D. Please call the office at if you have any concerns or questions about your operation or recovery. * YOU MAY SHOWER, NO TUB BATHS UNTIL CLEARED BY YOUR DOCTOR. * WEAR MIREYA HOSE 20 HOURS PER DAY FOR 2 WEEKS. * YOU SHOULD USE A WALKER OR CRUTCHES FOR 2-4 WEEKS. THIS WILL HELP PREVENT STRAIN ON YOUR HIP MUSCLE AND ALLOW IT TO HEAL PROPERLY. YOU MAY WEAN TO A CANE TOLERATED. * MOST PATIENTS WILL HAVE HOME NURSING FOR THERAPY. IF YOU DECIDE TO DO OUTPATIENT PHYSICAL THERAPY, PLEASE SCHEDULE THIS 3 TIMES PER WEEK. *PREVENA incisional vac is a special dressing covering your incision. This dressing provides a sterile dry environment while you are healing. The dressing is to be left in place for 7 days post-operatively. Your home nurse or surgeon will remove. If you develop any redness or blisters or have any questions notify your surgeon immediately. IF INCISION IS LEAKING THROUGH DRESSING, PLEASE CALL THE OFFICE . FOLLOW UP VISIT: If appointment is not already scheduled: Please call [facility] to make a follow-up appointment for 2 weeks after your surgery at . Pending Studies at Discharge: No Stand-Alone Forms: [facility] [employer]digits Medications and DC Order Prescriptions: New enoxaparin 40 mg/0.4 mL Syringe 40 mg subcut QAM Qty: 7 RF: 0 acetaminophen 500 mg Tablet 1,000 mg PO Q8 PRN (Reason: pain and fevers) Qty: 90 RF: 0 oxycodone 5 mg Tablet 5 mg PO Q6H MDD 4 PRN (Reason: pain) Qty: 30 RF: 0 sennosides [Senokot] 8.6 mg Tablet 17.2 mg PO HS PRN (Reason: constipation) Qty: 28 RF: 0 Continued warfarin 2 mg tablet See Patient Comments .ROUTE .COMPLEX RF: 0 cyanocobalamin (vitamin B-12) 1,000 mcg capsule 1,000 mcg PO DAILY RF: 0 folic acid 1 mg tablet 1 mg PO DAILY Qty: 90 RF: 1 aspirin 81 mg tablet,delayed release (DR/EC) 81 mg PO DAILY Qty: 90 RF: 0 metoprolol succinate 25 mg tablet extended release 24 hr 25 mg PO QAM RF: 0 losartan 100 mg tablet 100 mg PO QAM RF: 0 Discontinued enoxaparin 40 mg/0.4 mL syringe 40 mg SQ QAM Qty: 10 RF: 0 Discharge Orders: Discharge Order (Routine); Ordered 12/14/19 Ordered By: Taiwo Mercado/Other Patient Handouts: Prediabetes, A1C Admission Data Admit Date/Time: 12/13/19 12:17 Attending Provider: Que Reinoso Admit Provider: Que Reinoso Primary Care Provider: Torie Chamorro Other Interventions: Discharge Summary Assessment (RN) Last Done: 12/14/19 13:07 DC Date/Time DO NOT enter until pt leaves facility: 12/14/19 14:50
[2019-12-15] MEDS ORDERED: ASPIRIN 81 MG ECTAB PO SCH (09:00)
[2019-12-15] MEDS ORDERED: WARFARIN SOD 2 MG TAB PO SCH (16:00)
[2019-12-16] MEDS ORDERED: WARFARIN SOD 1 MG TAB PO SCH (16:00)
== END 2019-12-14 14:50 | disposition home health service (06) | DRG 470 ==
LOC: ASU 07:59 → 3N 12:17